=== PATIENT | female | born 1975 | race Caucasian/White ===

== ENCOUNTER 2017-01-24 05:08 | Emergency (ER) | payer SELFPAY ==
[2017-01-24 05:18] VITALS: BMI 24.1
[2017-01-24 05:20] VITALS: RESP 18; TEMP 98.1
--- NOTE | 2017-01-24 05:39 | ED PDOC ---
Arrival/HPI - General Chief Complaint: Abdominal Pain Time Seen by Provider: 01/24/17 05:16 Historian: Patient - History of Present Illness Narrative History of Present Illness (Text): 01/24/17 05:38 Shweta Zabala is a 41 year old female, with no significant past medical history , who presents to the Emergency department complaining of sudden onsent of RLQ after waking up 2 hours prior to arrival. Patient denies any nausea, vomiting, or diarrhea. Patient states she is currently menstruating. Patient denies any fever, chills, chest pain, shortness of breath, urinary symptoms, back pain, neck pain, headache, dizziness, or any other complaints. Time/Duration: 1-3 hours Symptom Onset: Gradual Symptom Course: Unchanged Activities at Onset: Rest, Light Context: Home Past Medical History - Provider Review Nursing Documentation Reviewed: Yes - Psychiatric Hx Substance Use: No Family/Social History - Physician Review Nursing Documentation Reviewed: Yes Family/Social History: No Known Family HX Smoking Status: no Hx Alcohol Use: No Hx Substance Use: No Allergies/Home Meds Allergies/Adverse Reactions: Allergies No Known Allergies Allergy (Verified 01/24/17 05:16) Home Medications: Home Meds Medication Instructions Recorded Confirmed No Known Home Med 01/24/17 01/24/17 Review of Systems - Physician Review All systems were reviewed & negative as marked: Yes - Review of Systems Constitutional: Normal. absent: Fevers Eyes: Normal ENT: Normal Respiratory: Normal. absent: SOB, Cough Cardiovascular: Normal. absent: Chest Pain Gastrointestinal: Abdominal Pain. absent: Diarrhea, Nausea, Vomiting Genitourinary Female: Normal. absent: Dysuria, Frequency, Hematuria, Urine Output Changes Musculoskeletal: Normal. absent: Back Pain, Neck Pain Skin: Normal. absent: Rash Neurological: Normal. absent: Headache, Dizziness Endocrine: Normal Hemo/Lymphatic: Normal Psychiatric: Normal Physical Exam Vital Signs Reviewed: Yes Vital Signs Temp Pulse Resp BP Pulse Ox 01/24/17 05:17 98.1 F 68 18 118/62 96 Temperature: Afebrile Blood Pressure: Normal Pulse: Regular Respiratory Rate: Normal Appearance: Positive for: Well-Appearing, Non-Toxic, Comfortable Pain Distress: None Mental Status: Positive for: Alert and Oriented X 3 - Systems Exam Head: Present: Atraumatic, Normocephalic Pupils: Present: PERRL Extroacular Muscles: Present: EOMI Conjunctiva: Present: Normal Mouth: Present: Moist Mucous Membranes Neck: Present: Normal Range of Motion Respiratory/Chest: Present: Clear to Auscultation, Good Air Exchange. No: Respiratory Distress, Accessory Muscle Use Cardiovascular: Present: Regular Rate and Rhythm, Normal S1, S2. No: Murmurs Abdomen: Present: Tenderness (RLQ tenderness), Normal Bowel Sounds. No: Distention, Peritoneal Signs Back: Present: Normal Inspection Upper Extremity: Present: Normal Inspection. No: Cyanosis, Edema Lower Extremity: Present: Normal Inspection. No: Edema Neurological: Present: GCS=15, CN II-XII Intact, Speech Normal Skin: Present: Warm, Dry, Normal Color. No: Rashes Psychiatric: Present: Alert, Oriented x 3, Normal Insight, Normal Concentration Medical Decision Making ED Course and Treatment: 01/24/17 05:38 Impression: 41 year old female complaining of RLQ pain. Plan: -- CT Abdomen and Pelvis with contrast -- Labs, lipase -- UA -- Reassess and disposition Prior Visits: Notes and results from previous visits were reviewed. Progress Notes: 01/24/2017 07:[address] Elizondo, pending all labs,CT scan Abd/Pelvis, re-evaluation, and final disposition. - RAD Interpretation Radiology Orders: 01/24/17 05:48 ABD PELVIS PO & IV CONTRAST [CT] Stat - Medication Orders Current Medication Orders: Discontinued Medications Iohexol (Omnipaque 240 (50 Ml)) Confirm Administered Dose 50 ml .ROUTE .K-MED ONE Stop: 01/24/17 05:53 - Scribe Statement The provider has reviewed the documentation as recorded by the Scribsimi Vazquez All medical record entries made by the Scribe were at my direction and personally dictated by me. I have reviewed the chart and agree that the record accurately reflects my personal performance of the history, physical exam, medical decision making, and the department course for this patient. I have also personally directed, reviewed, and agree with the discharge instructions and disposition. Disposition/Present on Arrival - Present on Arrival Any Indicators Present on Arrival: No History of DVT/PE: No History of Uncontrolled Diabetes: No Urinary Catheter: No History of Decub. Ulcer: No History Surgical Site Infection Following: None - Disposition Have Diagnosis and Disposition been Completed?: No Diagnosis: Abdominal pain Disposition Time: 07:00 Condition: STABLE
[2017-01-24] MEDS ORDERED: Iohexol 240 (50 ml) ONE (05:52)
[2017-01-24 06:49] LABS: PH,URINE 6.5 (4.7-8.0); URINE BILIRUBIN NEGATIVE (NEGATIVE); URINE BLOOD SMALL (NEGATIVE); URINE GLUCOSE (UA) NEGATIVE (NEGATIVE); URINE KETONE NEGATIVE (NEGATIVE); URINE LEUKOCYTE ESTERASE NEGATIVE Leu/uL (NEGATIVE); URINE PROTEIN NEGATIVE mg/dL (<30 mg/dL); URINE UROBILINOGEN 0.2 E.U./dL (<1 E.U./dL)
[2017-01-24 06:51] LABS: ALB/GLOB RATIO 1.2 (1.1-1.8); ALKALINE PHOSPHATASE 49 U/L (38-133); ALT/SGPT 25 U/L (7-56); AST/SGOT 25 U/L (15-39); BILIRUBIN,TOTAL 0.5 mg/dL (0.2-1.3); BLOOD UREA NITROGEN 12 mg/dL (7-21); CALCIUM 9.1 mg/dL (8.4-10.5); CARBON DIOXIDE 27 mmol/L (21-33); CHLORIDE 103 mmol/L (98-107); GFR AFRICAN-AMERICAN > 60; GLUCOSE,RANDOM 98 mg/dL (70-110); LIPASE 55 U/L (23-300); POTASSIUM 3.8 mmol/L (3.6-5.0); SODIUM 139 mmol/L (132-148)
[2017-01-24 06:55] LABS: HEMATOCRIT 33.8 % (36.0-48.0); MEAN CELL VOLUME 80.9 fL (80.0-105.0); MEAN CORPUSCULAR HEMOGLOBIN 26.6 pg (25.0-35.0); MEAN CORPUSCULAR HGB CONC 32.8 g/dl (31.0-37.0); MEAN PLATELET VOLUME 10.8 fl (7.0-11.0); RED CELL DISTRIBUTION WIDTH 13.6 % (11.5-14.5); WHITE BLOOD COUNT 10.2 10^3/ul (4.5-11.0)
[2017-01-24 06:56] LABS: URINE APPEARANCE SL CLOUDY (CLEAR); URINE COLOR YELLOW (YELLOW)
[2017-01-24 07:00] LABS: URINE WBC 0 - 2 /hpf (0-6)
--- NOTE | 2017-01-24 07:04 | ED PDOC ---
Physical Exam Vital Signs Reviewed: Yes Vital Signs Temp Pulse Resp BP Pulse Ox 01/24/17 05:17 98.1 F 68 18 118/62 96 Temperature: Afebrile Blood Pressure: Normal Pulse: Regular Respiratory Rate: Normal Appearance: Positive for: Well-Appearing, Non-Toxic, Comfortable Pain Distress: None Mental Status: Positive for: Alert and Oriented X 3 Medical Decision Making ED Course and Treatment: 01/24/17 07:02 Case endorsed to me by . Pending imaging, reevaluation and disposition. Patient is a 41 year old female who presents to the emergency department complaining of RLQ abdominal pain which began 2 hours prior to arrival. 01/24/17 09:23 Accession No. : [id number] Patient Name / ID : NAPOLEON WRIGHT / [id number] Exam Date : 01/24/2017 07:40:56 ( Approved ) Study Comment : Sex / Age : F / 41Y Creator : Mansi Martinez V. Dictator : Mansi Martinez V. Cargo Service Agent : Process Camera Operator : Mansi Martinez V. Approver2 : Report Date : 01/24/2017 09:20:40 My Comment : PROCEDURE: CT Abdomen and Pelvis with contrast HISTORY: right lower abdominal pain COMPARISON: None. TECHNIQUE: Contrast dose: Omni to 40 (4 cups) ; Omnipaque 351 100 mL Radiation dose: Total exam DLP = 417 mGy-cm. This CT exam was performed using one or more of the following dose reduction techniques: Automated exposure control, adjustment of the mA and/or kV according to patient size, and/or use of iterative reconstruction technique. FINDINGS: LOWER THORAX: Unremarkable. LIVER: Unremarkable. No gross lesion or ductal dilatation. GALLBLADDER AND BILE DUCTS: Unremarkable. PANCREAS: Unremarkable. No gross lesion or ductal dilatation. SPLEEN: Unremarkable. ADRENALS: Unremarkable. No mass. KIDNEYS AND URETERS: Unremarkable. No hydronephrosis. No solid mass. VASCULATURE: Unremarkable. No aortic aneurysm. BOWEL: Unremarkable. No obstruction. No gross mural thickening. APPENDIX: Normal appendix. PERITONEUM: A small amount of free fluid in the cul-de-sac right sided primarily likely relating to recent follicular cyst rupture in this 41-year-old female No free air. LYMPH NODES: Unremarkable. No enlarged lymph nodes. BLADDER: Unremarkable. REPRODUCTIVE: Benign physiologic appearing right ovarian follicular changes are inferred. BONES: No acute fracture. OTHER FINDINGS: None. IMPRESSION: Mild free fluid in the anomaly right sided cul-de-sac. Findings consistent with recent follicular cystic rupture. Patient states she feels better at this time. Patient continues to have RLQ tenderness, more medial rather than at McBurney's point. Advised ibuprofen, f/u PMD, instructed to return to ER for any worsening pain, vomiting, or other concern. - Lab Interpretations Lab Results: 01/24/17 06:20 01/24/17 06:20 Lab Results 01/24/17 06:20: WBC 10.2, RBC 4.18, Hgb 11.1 L, Hct 33.8 L, MCV 80.9, MCH 26.6, MCHC 32.8, RDW 13.6, Plt Count 209, MPV 10.8 01/24/17 06:20: Sodium 139, Potassium 3.8, Chloride 103, Carbon Dioxide 27, Anion Gap 13, BUN 12, Creatinine 0.6, Est GFR ( Amer) > 60, Est GFR (Non- Af Amer) > 60, Random Glucose 98, Calcium 9.1, Total Bilirubin 0.5, AST 25, ALT 25, Alkaline Phosphatase 49, Total Protein 7.0, Albumin 3.8, Globulin 3.2, Albumin/Globulin Ratio 1.2, Lipase 55 01/24/17 06:20: Urine Color Yellow, Urine Appearance Sl cloudy, Urine pH 6.5, Ur Specific [place] 1.020, Urine Protein Negative, Urine Glucose (UA) Negative, Urine Ketones Negative, Urine Blood Small H, Urine Nitrate Negative, Urine Bilirubin Negative, Urine Urobilinogen 0.2, Ur Leukocyte Esterase Negative, Urine RBC 1 - 3, Urine WBC 0 - 2, Ur Epithelial Cells 1 - 3, Urine HCG, Qual Negative - RAD Interpretation Radiology Orders: 01/24/17 05:48 ABD PELVIS PO & IV CONTRAST [CT] Stat - Medication Orders Current Medication Orders: Discontinued Medications Iohexol (Omnipaque 240 (50 Ml)) Confirm Administered Dose 50 ml .ROUTE .STK-MED ONE Stop: 01/24/17 05:53 Iohexol (Omnipaque 350 100 Ml) Confirm Administered Dose 350 mg .ROUTE .STK-MED ONE Stop: 01/24/17 07:29 - Scribe Statement The provider has reviewed the documentation as recorded by the Jenny Heath Provider Attestation: All medical record entries made by the Jenny were at my direction and personally dictated by me. I have reviewed the chart and agree that the record accurately reflects my personal performance of the history, physical exam, medical decision making, and the department course for this patient. I have also personally directed, reviewed, and agree with the discharge instructions and disposition. Disposition/Present on Arrival - Present on Arrival Any Indicators Present on Arrival: No History of DVT/PE: No History of Uncontrolled Diabetes: No Urinary Catheter: No History of Decub. Ulcer: No History Surgical Site Infection Following: None - Disposition Have Diagnosis and Disposition been Completed?: Yes Diagnosis: Ruptured ovarian cyst Disposition: HOME/ ROUTINE Disposition Time: 09:23 Patient Plan: Discharge Patient Problems: Current Active Problems Problem Status Onset Abdominal pain Acute Condition: STABLE Discharge Instructions (ExitCare): Ovarian Cyst (ED)
[2017-01-24] MEDS ORDERED: Iohexol 350 MG/100 ML VIAL ONE (07:28)
--- NOTE | 2017-01-24 09:22 | CT ---
PROCEDURE: CT Abdomen and Pelvis with contrast HISTORY: right lower abdominal pain COMPARISON: None. TECHNIQUE: Contrast dose: Omni to 40 (4 cups) ; Omnipaque 351 100 mL Radiation dose: Total exam DLP = 417 mGy-cm. This CT exam was performed using one or more of the following dose reduction techniques: Automated exposure control, adjustment of the mA and/or kV according to patient size, and/or use of iterative reconstruction technique. FINDINGS: LOWER THORAX: Unremarkable. LIVER: Unremarkable. No gross lesion or ductal dilatation. GALLBLADDER AND BILE DUCTS: Unremarkable. PANCREAS: Unremarkable. No gross lesion or ductal dilatation. SPLEEN: Unremarkable. ADRENALS: Unremarkable. No mass. KIDNEYS AND URETERS: Unremarkable. No hydronephrosis. No solid mass. VASCULATURE: Unremarkable. No aortic aneurysm. BOWEL: Unremarkable. No obstruction. No gross mural thickening. APPENDIX: Normal appendix. PERITONEUM: A small amount of free fluid in the cul-de-sac right sided primarily likely relating to recent follicular cyst rupture in this 41-year-old female No free air. LYMPH NODES: Unremarkable. No enlarged lymph nodes. BLADDER: Unremarkable. REPRODUCTIVE: Benign physiologic appearing right ovarian follicular changes are inferred. BONES: No acute fracture. OTHER FINDINGS: None. IMPRESSION: Mild free fluid in the anomaly right sided cul-de-sac. Findings consistent with recent follicular cystic rupture.
[2017-01-24 09:46] VITALS: BP 106/63; PULSE 85; O2SAT 98
== END 2017-01-24 09:50 | disposition home or self-care (01) ==
LOC: ED 05:08
DX: N83.201 Unspecified ovarian cyst, right side (principal); R10.31 Right lower quadrant pain
CPT/HCPCS: 74177; 80053; 81001; 83690; 84703; 85027; 99283; Q9966; Q9967